=== PATIENT | female | born 1980 | race Hispanic/Latino ===

== ENCOUNTER 2016-11-07 15:27 | Emergency (ER) | payer OTHER ==
[~2016-11-07] VITALS: Ht 172.7 cm; Wt 108.9 kg
[2016-11-07 15:33] VITALS: BP 118/79
[2016-11-07] MEDS ORDERED: PERCOCET 5-3251 EACH PO (17:30)
[2016-11-07] MEDS ORDERED: CYCLOBENZAPRINE10 M1 PO (17:30)
[2016-11-07] MEDS ORDERED: MOBIC15 M1 PO (17:30)
--- NOTE | 2016-11-07 17:31 | ED NECK/BACK PAIN COMPLAINT ---
History of Present Illness General Chief Complaint: General Adult Stated Complaint: BIBA ELEVATED BLOOD SUGAR,LOW BACK PAIN Source: patient Exam Limitations: no limitations Vital Signs & Intake/Output Vital Signs & Intake/Output Vital Signs Date Time Temp Pulse Resp B/P Pulse O2 O2 Flow FiO2 Ox Delivery Rate 11/07 1533 97.4 85 20 118/79 98 Room Air Allergies Coded Allergies: No Known Allergies (11/07/16) Reconcile Medications Cyclobenzaprine HCl 10 MG TABLET 1 TAB PO TID SPASMS Meloxicam (Mobic) 15 MG TABLET 1 TAB PO DAILY PAIN Oxycodone HCl/Acetaminophen (Percocet 5-325 MG Tablet) 5 MG-325 MG TABLET 1-2 TAB PO Q6P PRN PAIN Triage Note: PT BIBA TO ED FROM [facility] FOR C/O LOWER BACK PAIN AND HIGH BLOOD SUGAR. PT STATES SHE HAD AN ARGUMENT WITH HER SISTER WHICH SHE THINKS RAISED HER SUGAR. PT ALSO C/O LOW BACK PAIN S/P CARRYING BAGS. FINGERSTICK 187 IN TRIAGE. Triage Nurses Notes Reviewed? yes Onset: Abrupt Duration: hour(s):, constant Timing: recent history Location: lumbar spine Method of Injury: lifting Loss of Consciousness: no loss of consciousness : No Patient currently breastfeeds: No HPI: 36-year-old female comes into the emergency room for further evaluation of low back pain after lifting earlier today. Sharp throbbing pain. Continuous. Patient also reports that she checked her sugar earlier and it was high. Patient did not take her metformin today. Back pain is worse with any type or range of motion. Denies any numbness or tingling. Denies any vomiting. Denies any falls. (KWABENA RODRIGUES) Past History Travel History Traveled to [place] past 21 day No Medical History Any Pertinent Medical History? see below for history Respiratory: asthma Endocrine: diabetes, hypothyroidism Blood Disorders: WPW Surgical History Surgical History: non-contributory Psychosocial History What is your primary language Panamanian Tobacco Use: Current Daily Use Daily Tobacco Use Amount/Type: => 5 Cigarettes daily ETOH Use: denies use Illicit Drug Use: denies illicit drug use Family History Hx Contributory? No (KWABENA RODRIGUES) Review of Systems Review of Systems Constitutional: Reports: no symptoms. Eyes: Reports: no symptoms. Ears, Nose, Throat, Mouth: Reports: no symptoms. Respiratory: Reports: no symptoms. Cardiovascular: Reports: no symptoms. Gastrointestinal/Abdominal: Reports: no symptoms. Musculoskeletal: Reports: see HPI. Skin: Reports: no symptoms. Neurological/Psychological: Reports: no symptoms. All Other Systems: Reviewed and Negative (KWABENA RDORIGUES) Physical Exam Physical Exam General Appearance: well developed/nourished, mild distress Head: atraumatic Eyes: Bilateral: normal appearance. Ears, Nose, Throat, Mouth: hearing grossly normal, moist mucous membrane Neck: normal inspection, full range of motion Respiratory: normal breath sounds, no respiratory distress Cardiovascular: regular rate/rhythm Gastrointestinal: normal bowel sounds, soft, non-tender Back: normal inspection, decreased range of motion, paraspinal tenderness Extremities: normal range of motion Motor: Deficit L4 Right: No Deficit L4 Left: No Deficit L5 Right: No Deficit L5 Left: No Deficit S1 Right: No Deficit S1 Right: No Neurologic/Psych: awake, alert, oriented x 3, normal mood/affect Skin: intact, normal color, warm/dry (KWABENA RODRIGUES) Progress Differential Diagnosis: cauda equina syn, myofascial strain, pyelo/UTI, sciatica , spinal cord inj, thoracic outlet syn, T/L spine injury, ureterolithiasis Plan of Care: 11/07/2016 9:33:55 PM Patient clinically looks well. Patient is nontoxic-appearing. Patient is in no apparent distress. Symptoms are most consistent with muscular pain. Patient was offered further evaluation with x-ray but declined. I do not feel x-rays necessary at this time. Patient treated symptomatically. Repeat fingerstick is improved. Follow-up with primary care doctor or return if any concerns. (KWABENA RODRIGUES) Departure Departure Disposition: HOME OR SELF CARE Condition: Stable Clinical Impression Primary Impression: Strain of muscle, fascia and tendon of lower back, initial encounter Referrals: PATIENT HAS NO PRIMARY CARE DR (PCP/Family) Additional Instructions: Take Percocet, Flexeril, and Motrin as prescribed. Follow up with primary care Dr. provided. Have your blood glucose level rechecked again in a few days. Return if any other concerns worsening symptoms. Please go over all results of today's visit with your primary care doctor. Contact your primary care doctor to let them know you were here in the emergency room. There may be nonspecific findings which may not be related to your visit today here in the emergency room but may require further evaluation and chronic monitoring by your primary care doctor. If you had a laceration today the chance of foreign body always remains. You should follow-up with your primary care doctor for recheck in 3-5 days for a wound check. If you had an x-ray done there is a chance that a fracture could have been missed on initial read and you should follow-up with your primary care doctor for repeat x-rays if symptoms persist. If your blood pressure was elevated here in the emergency room please have rechecked by her primary care doctor within the next 48 hours by your primary care doctor. If you were prescribed a narcotic here in the emergency room or any type of controlled substances you're not allowed to drive while taking this medication or operate any type of heavy machinery. Narcotics can make you feel lightheaded dizziness nausea and can cause constipation. You may need to bean picker a stool softener. Thank you for choosing [facility] emergency room. Please return to the emergency room immediately if you have any other concerns worsening of symptoms. Departure Forms: Customer Survey General Discharge Information Prescriptions: Current Visit Scripts Oxycodone HCl/Acetaminophen (Percocet 5-325 MG Tablet) 1-2 TAB PO Q6P PRN PAIN #10 TAB Cyclobenzaprine HCl 1 TAB PO TID #20 TAB Meloxicam (Mobic) 1 TAB PO DAILY #15 TAB (KWABENA RODRIGUES) PA/VALVE INSERTER Co-Sign Statement Statement: ED Attending supervision documentation- [] I saw and evaluated the patient. I have also reviewed all the pertinent lab results and diagnostic results. I agree with the findings and the plan of care as documented in the PA's/VALVE INSERTER's documentation. [X] I have reviewed the ED Record and agree with the PA's/VALVE INSERTER's documentation. [] Additions or exceptions (if any) to the PAs/VALVE INSERTER's note and plan are summarized below: [] (APOLINAR ERNST,PREMA Medrano)
== END 2016-11-07 18:19 ==
LOC: ERH 15:27
DX: S39.012A Strain of muscle, fascia and tendon of lower back, initial encounter (principal); X58.XXXA Exposure to other specified factors, initial encounter